=== PATIENT | male | born 1975 | race Caucasian/White ===

== ENCOUNTER 2016-05-24 16:54 | Emergency (ER) | payer SELFPAY ==
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
[2016-05-24] MEDS ORDERED: HALOPERIDOL LACTATE INJ 5 MG/1 ML VIAL IV ONE (17:18)
[2016-05-24] MEDS ORDERED: LORAZEPAM INJ 2 MG/1 ML VIAL IV ONE (17:18)
[2016-05-24] MEDS ORDERED: NORMAL SALINE 1000 ML 1,000 ML IV ONE (17:19)
[2016-05-24 17:39] LABS: ABSOLUTE BASOPHILS # (AUTO) 0.1 10^3/uL (0.0-0.2); ABSOLUTE EOSINOPHILS # (AUTO) 0.1 10^3/uL (0.0-0.6); ABSOLUTE LYMPHOCYTES (AUTO) 2.6 10^3/uL (0.5-4.7); ABSOLUTE MONOCYTES (AUTO) 0.3 10^3/uL (0.1-1.4); ABSOLUTE NEUT (AUTO) 3.7 10^3/uL (1.7-8.2); BASOPHILS % (AUTO) 0.8 % (0-2); EOSINOPHILS % (AUTO) 1.9 % (0-6); HEMATOCRIT 46.9 % (37.9-51.0); HEMOGLOBIN 16.3 g/dL (13.5-17.0); MEAN CORPUSCULAR HEMOGLOBIN 32.4 pg (27.0-33.4); MEAN CORPUSCULAR HGB CONC 34.8 g/dL (32.0-36.0); MEAN CORPUSCULAR VOLUME 93 fl (80-97); MONOCYTES % (AUTO) 4.8 % (3-13); RED BLOOD COUNT 5.03 10^6/uL (4.35-5.55); RED CELL DISTRIBUTION WIDTH 12.2 % (11.5-14.0); SEGMENTED NEUTROPHILS % (AUTO) 54.5 % (42-78); WHITE BLOOD COUNT 6.8 10^3/uL (4.0-10.5)
--- NOTE | 2016-05-24 18:26 | EKG REPORT ---
SEVERITY:- ABNORMAL ECG - SINUS TACHYCARDIA LEFT ANTERIOR FASCICULAR BLOCK LOW VOLTAGE IN FRONTAL LEADS : Confirmed by: Dandy Myers MD 24-May-2016 18:25:36
[2016-05-24 18:49] LABS: ALANINE AMINOTRANSFERASE 30 U/L (21-72); ALBUMIN 3.2 g/dL (3.5-5.0); ALCOHOL 237 mg/dL (NONE DETECTED); ALKALINE PHOSPHATASE 58 U/L (38-126); ANION GAP 11 (5-19); ASPARTATE AMINO TRANSFERASE 25 U/L (17-59); BILIRUBIN,DIRECT 0.3 mg/dL (0.0-0.4); BILIRUBIN,TOTAL 0.3 mg/dL (0.2-1.3); BLOOD UREA NITROGEN 5 mg/dL (7-20); CALCIUM 7.8 mg/dL (8.4-10.2); CARBON DIOXIDE 23 mmol/L (22-30); CHLORIDE 116 mmol/L (98-107); CREATININE RESULT 0.75 mg/dL (0.52-1.25); GLUCOSE 94 mg/dL (75-110); SODIUM 149.7 mmol/L (137-145); TOTAL PROTEIN 5.4 g/dL (6.3-8.2)
[2016-05-24 19:55] LABS: URINE BARBITURATES SCREEN NEGATIVE; URINE METHADONE SCREEN NEGATIVE; URINE OPIATES LOW NEGATIVE; URINE PHENCYCLIDINE SCREEN NEGATIVE
[2016-05-24] MEDS: NORMAL SALINE 1000 ML 1,000 ML IV PRN (21:18)
[2016-05-25] MEDS: NORMAL SALINE 1000 ML 1,000 ML IV PRN (07:47)
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
--- NOTE | 2016-05-25 09:07 | ER Document Report ---
Doctor's Note Notes: 05/25/16 09:07 Pt seen and evaluated. No complaints at this time. Resting comfortably and not agitated. Eating and drinking normally and has not had any syncopal complaints. Awaiting psych recommendations at this time. 05/25/16 12:07 Pt seen by Psych and they recommend discharge with outpatient f/ u at [facility]. "Impression\\plan: Patient is considered psychiatrically cleared for discharge. Patient does not meet IVC criteria per [place] GS 122C. Patient is new to the area and does not know the local resources. Clinician provided local resource lists of mental health, food merino, jail, and other economic assistances. Patient is recommended to follow-up with A. Dr. Bradford was consulted on the care management of this patient. Attending physician is in agreement with recommendations and disposition." Patient with no complaints. Denies suicidality at this time. His vital signs normalized. Instructed him to follow-up with [facility] and use the resources that he is provided with. No new medications.
[2016-05-25 12:11] VITALS: BP 119/79
== END 2016-05-25 12:33 | disposition home or self-care (01) ==
LOC: ER 16:54
DX: R44.0 Auditory hallucinations (principal); F20.9 Schizophrenia, unspecified; F10.129 Alcohol abuse with intoxication, unspecified; R07.9 Chest pain, unspecified
CPT/HCPCS: 93005; 99285; 96361; 96374; 96375; 36415; 80307 ×4; 85025; 80053; 93010; J1630; J2060; J7030 ×2

== ENCOUNTER 2016-06-02 01:21 | Emergency (ER) | payer OTHER ==
[2016-06-02] MEDS ORDERED: CEFAZOLIN 1 GM/D5W RTU 1 GM/50 ML RTUPB IV ONE (01:26)
[2016-06-02] MEDS ORDERED: FENTANYL CITRATE INJ/PF 100 MCG/2 ML AMPUL ONE (01:26)
[2016-06-02] MEDS ORDERED: DIPH/PERTUSS(ACELL)/TETANUS VAC/PF 0.5 ML SYR (>=10YO) IM ONE (01:30)
[2016-06-02] MEDS ORDERED: MIDAZOLAM 2 MG/2 ML INJ ONE (01:39)
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
[2016-06-02 02:24] VITALS: BP 117/84
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
[2016-06-02] MEDS ORDERED: ROCURONIUM BROMIDE INJ 50 MG/5 ML VIAL IV ONE (09:26)
== END 2016-06-02 01:56 | disposition short-term general hospital (02) ==
LOC: ER 01:21
DX: F10.120 Alcohol abuse with intoxication, uncomplicated (principal); V03.99XA Pedestrian with other conveyance injured in collision with car, pick-up truck or van, unspecified whether traffic or nontraffic accident, initial encounter
CPT/HCPCS: 71010; 72170; 90715; J2250; J0690; J3490; J3010

== ENCOUNTER 2016-09-18 17:31 | Emergency (ER) | payer SELFPAY ==
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
[2016-09-18 18:03] LABS: ABSOLUTE BASOPHILS # (AUTO) 0.1 10^3/uL (0.0-0.2); ABSOLUTE EOSINOPHILS # (AUTO) 0.1 10^3/uL (0.0-0.6); ABSOLUTE LYMPHOCYTES (AUTO) 2.6 10^3/uL (0.5-4.7); ABSOLUTE MONOCYTES (AUTO) 0.4 10^3/uL (0.1-1.4); ABSOLUTE NEUT (AUTO) 2.4 10^3/uL (1.7-8.2); BASOPHILS % (AUTO) 1.2 % (0-2); EOSINOPHILS % (AUTO) 2.1 % (0-6); HEMATOCRIT 45.5 % (37.9-51.0); HEMOGLOBIN 15.1 g/dL (13.5-17.0); HGB HCT DIFFERENCE -0.2; LYMPHOCYTES % (AUTO) 46.4 % (13-45); MEAN CORPUSCULAR HEMOGLOBIN 31.6 pg (27.0-33.4); MEAN CORPUSCULAR HGB CONC 33.2 g/dL (32.0-36.0); MEAN CORPUSCULAR VOLUME 95 fl (80-97); MONOCYTES % (AUTO) 7.6 % (3-13); RED BLOOD COUNT 4.78 10^6/uL (4.35-5.55); RED CELL DISTRIBUTION WIDTH 12.9 % (11.5-14.0); SEGMENTED NEUTROPHILS % (AUTO) 42.7 % (42-78); WHITE BLOOD COUNT 5.6 10^3/uL (4.0-10.5)
[2016-09-18 18:21] LABS: ALANINE AMINOTRANSFERASE 27 U/L (21-72); ALBUMIN 3.3 g/dL (3.5-5.0); ALCOHOL 287 mg/dL (NONE DETECTED); ALKALINE PHOSPHATASE 53 U/L (38-126); ANION GAP 8 (5-19); ASPARTATE AMINO TRANSFERASE 24 U/L (17-59); BILIRUBIN,DIRECT 0.3 mg/dL (0.0-0.4); BILIRUBIN,TOTAL 0.3 mg/dL (0.2-1.3); BLOOD UREA NITROGEN 6 mg/dL (7-20); CALCIUM 8.5 mg/dL (8.4-10.2); CARBON DIOXIDE 22 mmol/L (22-30); CHLORIDE 113 mmol/L (98-107); CREATINE KINASE 83 U/L (55-170); CREATININE RESULT 0.86 mg/dL (0.52-1.25); GLUCOSE 116 mg/dL (75-110); SODIUM 143.4 mmol/L (137-145); TOTAL PROTEIN 5.5 g/dL (6.3-8.2)
[2016-09-18 18:31] LABS: APPEARANCE,URINE CLEAR; BILIRUBIN,URINE NEGATIVE (NEGATIVE); GLUCOSE, URINE NEGATIVE (NEGATIVE); KETONES,URINE NEGATIVE (NEGATIVE); LEUKOCYTE ESTERASE,URINE NEGATIVE (NEGATIVE); NITRITE,URINE NEGATIVE (NEGATIVE); PROTEIN,URINE NEGATIVE (NEGATIVE); URINE SPECIFIC GRAVITY 1.001; UROBILINOGEN,URINE NEGATIVE mg/dL (<2.0)
[2016-09-18 18:36] LABS: CREATINE KINASE MB 0.31 ng/mL (<4.55)
[2016-09-18 18:37] LABS: TROPONIN I < 0.012 ng/mL
[2016-09-18 18:47] LABS: URINE BARBITURATES SCREEN NEGATIVE; URINE METHADONE SCREEN NEGATIVE; URINE OPIATES LOW NEGATIVE; URINE PHENCYCLIDINE SCREEN NEGATIVE
--- NOTE | 2016-09-18 21:59 | EKG REPORT ---
SEVERITY:- ABNORMAL ECG - SINUS RHYTHM PROBABLE LEFT ATRIAL ABNORMALITY LAD, CONSIDER LEFT ANTERIOR FASCICULAR BLOCK : Confirmed by: Dandy Myers MD 18-Sep-2016 21:57:48
[2016-09-18] MEDS ORDERED: QUETIAPINE FUMARATE 100 MG TABLET PO SCH (22:00)
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
--- NOTE | 2016-09-19 10:22 | ER Document Report ---
Doctor's Note Notes: 09/19/16 10:21 Discussed with patient and DC plans. We will start him back on his Seroquel with a week's supply. He has no new complaints.
[2016-09-19 10:45] VITALS: BP 118/77
== END 2016-09-19 10:59 | disposition home or self-care (01) ==
LOC: ER 17:31
DX: F20.9 Schizophrenia, unspecified (principal); F10.920 Alcohol use, unspecified with intoxication, uncomplicated; F17.210 Nicotine dependence, cigarettes, uncomplicated
CPT/HCPCS: 36415; 80053; 80307; 81001; 82550; 82553; 84484; 85025; 93005; 93010; 99285

== ENCOUNTER 2016-12-27 17:30 | Emergency (ER) | payer SELFPAY ==
[2016-12-27 17:54] LABS: ABSOLUTE BASOPHILS # (AUTO) 0.1 10^3/uL (0.0-0.2); ABSOLUTE MONOCYTES (AUTO) 0.3 10^3/uL (0.1-1.4); ABSOLUTE NEUT (AUTO) 2.3 10^3/uL (1.7-8.2); BASOPHILS % (AUTO) 1.1 % (0-2); EOSINOPHILS % (AUTO) 0.4 % (0-6); HEMATOCRIT 44.6 % (37.9-51.0); HEMOGLOBIN 15.6 g/dL (13.5-17.0); HGB HCT DIFFERENCE 2.2; LYMPHOCYTES % (AUTO) 42.2 % (13-45); MEAN CORPUSCULAR HEMOGLOBIN 32.3 pg (27.0-33.4); MEAN CORPUSCULAR VOLUME 92 fl (80-97); RED BLOOD COUNT 4.83 10^6/uL (4.35-5.55); RED CELL DISTRIBUTION WIDTH 12.9 % (11.5-14.0); SEGMENTED NEUTROPHILS % (AUTO) 49.3 % (42-78); WHITE BLOOD COUNT 4.7 10^3/uL (4.0-10.5)
[2016-12-27 18:13] LABS: ALANINE AMINOTRANSFERASE 32 U/L (21-72); ALBUMIN 3.6 g/dL (3.5-5.0); ALCOHOL 270 mg/dL (NONE DETECTED); ALKALINE PHOSPHATASE 54 U/L (38-126); ANION GAP 16 (5-19); ASPARTATE AMINO TRANSFERASE 33 U/L (17-59); BILIRUBIN,DIRECT 0.3 mg/dL (0.0-0.4); BILIRUBIN,TOTAL 0.3 mg/dL (0.2-1.3); BLOOD UREA NITROGEN 5 mg/dL (7-20); CALCIUM 8.6 mg/dL (8.4-10.2); CARBON DIOXIDE 22 mmol/L (22-30); CHLORIDE 105 mmol/L (98-107); CREATININE RESULT 0.73 mg/dL (0.52-1.25); GLUCOSE 87 mg/dL (75-110); POTASSIUM 3.4 mmol/L (3.6-5.0); SODIUM 142.8 mmol/L (137-145); TOTAL PROTEIN 5.8 g/dL (6.3-8.2)
--- NOTE | 2016-12-27 19:05 | ER Document Report ---
ED General - General Chief Complaint: Overdose Stated Complaint: POSSBILE OVERDOSE Time Seen by Provider: 12/27/16 17:45 Mode of Arrival: Medic Information source: Relative Cannot obtain history due to: Intoxicated Notes: 41-year-old male presents with with concerns for overdose. She notes that patient took Seroquel to go to sleep as well as drank to 40 ounce bottles of alcohol. Patient did tell EMS that he wishes to hurt himself but told his that he just wants to sleep. TRAVEL OUTSIDE OF THE [place] IN LAST 30 DAYS: No - HPI Onset: Just prior to arrival Onset/Duration: Sudden Quality of pain: No pain Severity: Mild Pain Level: Denies Associated symptoms: Weakness Exacerbated by: Denies Relieved by: Denies Similar symptoms previously: No Recently seen / treated by doctor: No - Related Data Allergies/Adverse Reactions: No Known Allergies Allergy (Verified 05/24/16 20:59) Home Medications: Current Home Medications Vilazodone HCl [Viibryd] 20 mg PO DAILY 12/27/16 [History] Past Medical History - Social History Smoking Status: Current Every Day Smoker Cigarette use (# per day): Yes Chew tobacco use (# tins/day): No Smoking Education Provided: No Frequency of alcohol use: Heavy Drug Abuse: None Family History: Reviewed & Not Pertinent Renal/ Medical History: Denies: Hx Peritoneal Dialysis Psychiatric Medical History: Reports: Hx Bipolar Disorder, Hx Schizophrenia - Immunizations Hx Diphtheria, Pertussis, Tetanus Vaccination: No Review of Systems - Review of Systems Notes: REVIEW OF SYSTEMS: CONSTITUTIONAL : Denies fever, chills, or sweats. Denies recent illness. EENT: Denies eye, ear, throat, or mouth pain or symptoms. Denies nasal or sinus congestion or discharge. Denies throat, tongue, or mouth swelling or difficulty swallowing. CARDIOVASCULAR: Denies chest pain. Denies palpitations or racing or irregular heart beat. Denies ankle edema. RESPIRATORY: Denies cough, cold, or chest congestion. Denies shortness of breath, difficulty breathing, or wheezing. GASTROINTESTINAL: Denies abdominal pain or distention. Denies nausea, vomiting , or diarrhea. Denies blood in vomitus, stools, or per rectum. Denies black, tarry stools. Denies constipation. GENITOURINARY: Denies difficulty urinating, painful urination, burning, frequency, blood in urine, or discharge. MUSCULOSKELETAL: Denies back or neck pain or stiffness. Denies joint pain or swelling. SKIN: Denies rash, lesions or sores. HEMATOLOGIC : Denies easy bruising or bleeding. LYMPHATIC: Denies swollen, enlarged glands. NEUROLOGICAL: Admits to decreased responsiveness per PSYCHIATRIC: Denies anxiety or stress. Denies depression, suicidal ideation, or homicidal ideation. ALL OTHER SYSTEMS REVIEWED AND NEGATIVE. Dictation was performed using [employer] voice recognition software PHYSICAL EXAMINATION: GENERAL: Drowsy no acute distress HEAD: Atraumatic, normocephalic. EYES: Pupils equal round and reactive to light, extraocular movements intact, sclera anicteric, conjunctiva are normal. ENT: Nares patent, oropharynx clear without exudates. Moist mucous membranes. NECK: Normal range of motion, supple without lymphadenopathy LUNGS: Breath sounds clear to auscultation bilaterally and equal. No wheezes rales or rhonchi. HEART: Regular rate and rhythm without murmurs ABDOMEN: Soft, nontender, nondistended abdomen. No guarding, no rebound. No masses appreciated. Musculoskeletal: Normal range of motion, no pitting or edema. No cyanosis. NEUROLOGICAL: Cranial nerves grossly intact. Normal speech, normal gait. Normal sensory, motor exams PSYCH: Normal mood, normal affect. SKIN: Warm, Dry, normal turgor, no rashes or lesions noted. Physical Exam - Vital signs Vitals: Pulse Resp BP Pulse Ox 110 H 18 120/75 98 12/27/16 17:42 12/27/16 17:42 12/27/16 17:42 12/27/16 17:42 Course - Re-evaluation Re-evalutation: 12/27/16 20:22 Patient is obviously intoxicated, did take large amount of Seroquel and is being watched in the emergency department at this time under monitoring. He will be kept overnight for evaluation by mental health - Vital Signs Vital signs: Temp Pulse Resp BP Pulse Ox 110 H 18 120/75 98 12/27/16 17:42 12/27/16 17:42 12/27/16 17:42 12/27/16 17:42 - Laboratory Result Diagrams: 12/27/16 17:35 12/27/16 17:35 Laboratory results interpreted by me: 12/27/16 12/27/16 17:35 17:35 Plt Count 129 L Potassium 3.4 L BUN 5 L Total Protein 5.8 L Salicylates < 1.0 L Acetaminophen < 10 L - EKG Interpretation by Me EKG shows normal: Sinus rhythm, [place], Intervals, QRS Complexes Rate: Tachycardia Discharge - Discharge Clinical Impression: Alcohol abuse Overdose Qualifiers: Encounter type: initial encounter Injury intent: accidental or unintentional Qualified Code(s): T50.901A - Poisoning by unspecified drugs, medicaments and biological substances, accidental (unintentional), initial encounter Condition: Stable Disposition: PSYCH HOSP/UNIT
[2016-12-27 20:45] LABS: APPEARANCE,URINE CLEAR; BILIRUBIN,URINE NEGATIVE (NEGATIVE); GLUCOSE, URINE NEGATIVE (NEGATIVE); KETONES,URINE NEGATIVE (NEGATIVE); LEUKOCYTE ESTERASE,URINE NEGATIVE (NEGATIVE); NITRITE,URINE NEGATIVE (NEGATIVE); PROTEIN,URINE NEGATIVE (NEGATIVE); URINE SPECIFIC GRAVITY 1.002; UROBILINOGEN,URINE NEGATIVE mg/dL (<2.0)
[2016-12-27 21:03] LABS: URINE BARBITURATES SCREEN NEGATIVE; URINE METHADONE SCREEN NEGATIVE; URINE OPIATES LOW NEGATIVE; URINE PHENCYCLIDINE SCREEN NEGATIVE
--- NOTE | 2016-12-28 00:02 | EKG REPORT ---
SEVERITY:- ABNORMAL ECG - SINUS RHYTHM LAD, CONSIDER LEFT ANTERIOR FASCICULAR BLOCK : Confirmed by: Carmen Cardoso 28-Dec-2016 00:01:51
--- NOTE | 2016-12-28 10:32 | ER Document Report ---
Doctor's Note Notes: 12/28/16 10:29 Rounds: Chart reviewed and patient interviewed. Patient is awake and alert and denies any suicidal thoughts. is with him and says he does not express any suicidal thoughts to her. says that patient forgot to take his sleeping pill (Seroquel) the night before last and she told him to take the pill yesterday morning. In addition then, patient drank 2 large 40+ ounces of beer. His alcohol level here was 270 in triage. called EMS to transport patient to the hospital. He reportedly told EMS that he was feeling suicidal. Again, patient denies feeling that way at this time. Vital signs are all normal. Patient appears to be medically stable for transfer or discharge. Mavis Lopez MD
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
[2016-12-28 12:18] VITALS: BP 123/68
--- NOTE | 2016-12-28 23:14 | EKG REPORT ---
SEVERITY:- ABNORMAL ECG - SINUS RHYTHM PROBABLE LEFT ATRIAL ABNORMALITY LEFT ANTERIOR FASCICULAR BLOCK : Confirmed by: Carmen Cardoso 28-Dec-2016 23:13:55
== END 2016-12-28 12:00 | disposition home or self-care (01) ==
LOC: ER 17:30
DX: T43.591A Poisoning by other antipsychotics and neuroleptics, accidental (unintentional), initial encounter (principal); F10.129 Alcohol abuse with intoxication, unspecified; Y90.8 Blood alcohol level of 240 mg/100 ml or more; F25.1 Schizoaffective disorder, depressive type; R53.1 Weakness; F17.210 Nicotine dependence, cigarettes, uncomplicated; R00.0 Tachycardia, unspecified
CPT/HCPCS: 36415; 80053; 80307; 81001; 85025; 93005; 93010; 99285

== ENCOUNTER 2017-03-14 00:25 | Emergency (ER) | payer SELFPAY ==
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
[2017-03-14] MEDS ORDERED: DIPH/PERTUSS(ACELL)/TETANUS VAC/PF 0.5 ML SYR (>=10YO) IM ONE (01:12)
[2017-03-14 01:14] LABS: APPEARANCE,URINE CLEAR; BILIRUBIN,URINE NEGATIVE (NEGATIVE); COLOR,URINE COLORLESS; GLUCOSE, URINE NEGATIVE (NEGATIVE); KETONES,URINE NEGATIVE (NEGATIVE); LEUKOCYTE ESTERASE,URINE NEGATIVE (NEGATIVE); NITRITE,URINE NEGATIVE (NEGATIVE); PROTEIN,URINE NEGATIVE (NEGATIVE); URINE SPECIFIC GRAVITY 1.001; UROBILINOGEN,URINE NEGATIVE mg/dL (<2.0)
[2017-03-14 01:15] LABS: ABSOLUTE BASOPHILS # (AUTO) 0.1 10^3/uL (0.0-0.2); ABSOLUTE EOSINOPHILS # (AUTO) 0.1 10^3/uL (0.0-0.6); ABSOLUTE LYMPHOCYTES (AUTO) 3.2 10^3/uL (0.5-4.7); ABSOLUTE MONOCYTES (AUTO) 0.4 10^3/uL (0.1-1.4); ABSOLUTE NEUT (AUTO) 2.9 10^3/uL (1.7-8.2); BASOPHILS % (AUTO) 1.4 % (0-2); EOSINOPHILS % (AUTO) 1.8 % (0-6); HEMATOCRIT 43.1 % (37.9-51.0); HEMOGLOBIN 14.7 g/dL (13.5-17.0); LYMPHOCYTES % (AUTO) 47.4 % (13-45); MEAN CORPUSCULAR HEMOGLOBIN 31.9 pg (27.0-33.4); MEAN CORPUSCULAR HGB CONC 34.1 g/dL (32.0-36.0); MEAN CORPUSCULAR VOLUME 94 fl (80-97); MONOCYTES % (AUTO) 6.3 % (3-13); PLATELET COUNT 155 10^3/uL (150-450); RED BLOOD COUNT 4.61 10^6/uL (4.35-5.55); RED CELL DISTRIBUTION WIDTH 12.9 % (11.5-14.0); SEGMENTED NEUTROPHILS % (AUTO) 43.1 % (42-78); TOTAL CELLS COUNTED % (AUTO) 100 %; WHITE BLOOD COUNT 6.7 10^3/uL (4.0-10.5)
[2017-03-14 01:48] LABS: URINE AMPHETAMINES SCREEN NEGATIVE; URINE BENZODIAZEPINES SCREEN NEGATIVE; URINE COCAINE SCREEN NEGATIVE; URINE MARIJUANA (THC) SCREEN NEGATIVE; URINE METHADONE SCREEN NEGATIVE; URINE PHENCYCLIDINE SCREEN NEGATIVE
[2017-03-14 01:54] LABS: URINE BARBITURATES SCREEN NEGATIVE
[2017-03-14 01:58] LABS: ALBUMIN 3.9 g/dL (3.5-5.0); ANION GAP 13 (5-19); ASPARTATE AMINO TRANSFERASE 25 U/L (17-59); BILIRUBIN,DIRECT 0.1 mg/dL (0.0-0.4); BILIRUBIN,TOTAL 0.1 mg/dL (0.2-1.3); BLOOD UREA NITROGEN 6 mg/dL (7-20); CALCIUM 9.1 mg/dL (8.4-10.2); CARBON DIOXIDE 21 mmol/L (22-30); CHLORIDE 108 mmol/L (98-107); GLUCOSE 80 mg/dL (75-110); SODIUM 141.8 mmol/L (137-145); TOTAL PROTEIN 5.9 g/dL (6.3-8.2)
[2017-03-14 02:00] LABS: ALANINE AMINOTRANSFERASE 23 U/L (21-72); ALKALINE PHOSPHATASE 43 U/L (38-126)
[2017-03-14 02:02] LABS: ACETAMINOPHEN < 10 ug/mL (10-30); SALICYLATE < 1.0 mg/dL (2.0-20.0)
[2017-03-14 02:19] LABS: ALCOHOL 336 mg/dL (NONE DETECTED)
[2017-03-14] MEDS ORDERED: THIAMINE HCL 100 MG, FOLIC ACID 1 MG in NORMAL SALINE 250 ML IV ONE (02:23)
[2017-03-14] MEDS ORDERED: FOLIC ACID INJ 5 MG/1 ML 10 ML VIAL ONE (02:37)
[2017-03-14] MEDS ORDERED: THIAMINE HCL INJ 200 MG/2 ML VIAL ONE (02:37)
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
--- NOTE | 2017-03-14 06:42 | EKG REPORT ---
SEVERITY:- ABNORMAL ECG - SINUS RHYTHM INCOMPLETE RBBB AND LAFB : Confirmed by: Dandy Myers MD 14-Mar-2017 06:41:43
[2017-03-14 09:42] VITALS: BP 94/59
== END 2017-03-14 09:44 | disposition home or self-care (01) ==
LOC: ER 00:25
DX: S16.1XXA Strain of muscle, fascia and tendon at neck level, initial encounter (principal); S69.92XA Unspecified injury of left wrist, hand and finger(s), initial encounter; F10.920 Alcohol use, unspecified with intoxication, uncomplicated; M79.604 Pain in right leg; F20.9 Schizophrenia, unspecified; M25.532 Pain in left wrist; V03.90XA Pedestrian on foot injured in collision with car, pick-up truck or van, unspecified whether traffic or nontraffic accident, initial encounter
CPT/HCPCS: 93005; 99284; 90471; 96374; 36415; 80307 ×4; 85025; 80053; 81001; 73090; 73110; 70450; 71260; 72125; 90715; 93010; J3490; J3411; J7050